=== PATIENT | female | born 1985 | race Caucasian/White ===

== ENCOUNTER → 2016-06-30 | Outpatient (CLI) | payer OTHER ==
[~2016-06-30] MED LIST: ACET50TAOT PO; IBUP800T23 PO; ISOVUE-370 76% 100ML VIAL (Q9967) As Ordered ONE; KEFL500C7 PO
--- NOTE | 2016-06-30 10:36 | REP ---
CT STUDY OF THE ABDOMEN PELVIS WITHOUT AND WITH IV CONTRAST: Without oral contrast. 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 Comparison CT study is from September 28, 2015 and December 04, 2012. The contrast enhanced study from September 28, 2015 showed foci of decreased cortical function or low density in the upper and mid pole position of the left kidney compatible with pyelonephritis versus cystic or neoplastic lesion. CT contrast dose: 100 mL of Isovue 370 is administered intravenously by auto injector. 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 The lung bases show patchy mosaic areas of slightly increased ground-glass opacity in the right lower lobe air. This is nonspecific and may reflect subsegmental atelectatic change or reactive airways disease. The liver and the spleen are normal in size and homogeneous in texture on pre and postcontrast images. No focal hepatic or splenic lesion is seen. The gallbladder is unremarkable. No pancreatic abnormality is seen. No adrenal lesion is observed on either side. The previously noted finding of multifocal decreased cortical enhancement in the left kidney is no longer apparent. No focal left or right renal abnormality is seen in the renal parenchyma. There is a tiny intrarenal calculus in each kidney. On the right, this is in the lower pole and measures 2 mm. On the left, there is a mid pole calculus also measuring 2 mm. No hydronephrosis is seen. No retroperitoneal mass or adenopathy is seen. Normal caliber aorta is noted. No vascular abnormality is seen. The IUD is seen in an anteverted normal appearing uterus. There is a 2.0 cm follicle cyst in the left ovary. No ovarian mass or significant lesion is seen. No abdominal wall defect is observed. No bony destructive lesion seen. IMPRESSION: 1. Intrarenal nephrolithiasis bilaterally. There is one 2 mm calculus in each kidney. 2. No evidence of renal mass or cyst on either side. No hydronephrosis. 3. No other significant abnormality. IUD in place in the uterus. Signed by Tao Miles MD 06/30/2016 10:41 A
== END ==
LOC: M RAD 09:01
PROVIDERS: ATTEND Internal Medicine Nephrology
DX: D41.02 Neoplasm of uncertain behavior of left kidney (principal); N20.0 Calculus of kidney; Z97.5 Presence of (intrauterine) contraceptive device

== ENCOUNTER → 2016-07-07 | Outpatient (REF) | payer OTHER ==
[~2016-07-07] MED LIST changes: -ISOVUE-370 76% 100ML VIAL (Q9967) As Ordered ONE
[2016-07-07 18:02] LABS: COMPLEMENT C3 96.2 MG/DL (90-180); COMPLEMENT C4 21.4 MG/DL (10-40)
== END ==
LOC: M LAB REF 17:05
PROVIDERS: ATTEND Internal Medicine Nephrology
DX: N39.0 Urinary tract infection, site not specified (principal); R31.9 Hematuria, unspecified

== ENCOUNTER → 2017-05-18 | Outpatient (CLI) | payer OTHER ==
[~2017-05-18] MED LIST changes: +IBUP1TAB7 PO; -IBUP800T23 PO; +KEFL500C17 PO; -KEFL500C7 PO
[2017-05-18 09:15] LABS: BASO % 0.4 % (0.0-1.0); EOS # 0.1 10^3/uL (0.0-0.50); EOS % 2.1 % (0.0-3.0); IMMATURE GRANULOCYTE % 0.1 % (0-0); LYMPH # 2.9 10^3/uL (1.5-4.5); LYMPH % 43.5 % (24.0-44.0); MEAN CORPUSCULAR HEMOGLOBIN 32.4 pg (27.0-33.0); MEAN CORPUSCULAR HGB CONC 35.1 g/dl (32.0-36.5); MEAN CORPUSCULAR VOLUME 92.4 fl (80.0-96.0); MONO # 0.5 10^3/uL (0.0-0.8); MONO % 7.1 % (0.0-5.0); NEUTROPHILS # 3.1 10^3/uL (1.8-7.7); NEUTROPHILS % 46.8 % (36.0-66.0); PLATELET COUNT, AUTOMATED 278 10^3/uL (150-450); RED CELL DISTRIBUTION WIDTH 12.3 % (11.5-14.5); WHITE BLOOD COUNT 6.7 10^3/uL (4.0-10.0)
[2017-05-18 10:13] LABS: PERCENT SATURATION 30.2 % (13.2-45.0)
[2017-05-18 11:52] LABS: FOLLICLE STIMULATING HORMONE 5.3 mIU/mL; LUTEINIZING HORMONE 9.5 mIU/mL
== END ==
LOC: M LAB 08:15
PROVIDERS: ATTEND Physician Assistant
DX: R53.81 Other malaise (principal)

== ENCOUNTER → 2019-07-13 | Outpatient (REF) | payer OTHER ==
[~2019-07-13] MED LIST changes: +ACET500T15 PO; -ACET50TAOT PO
[2019-07-13 11:30] LABS: INFLUENZA A AMPLIFICATION NEGATIVE (NEGATIVE); INFLUENZA B AMPLIFICATION NEGATIVE (NEGATIVE)
== END ==
LOC: M LAB REF 10:50
PROVIDERS: ATTEND Physician Assistant
DX: J11.1 Influenza due to unidentified influenza virus with other respiratory manifestations (principal)

== ENCOUNTER → 2022-04-20 | Outpatient (CLI) | payer OTHER | LOC: M WHC 10:51 | PROVIDERS: ATTEND Nurse Practitioner Family | DX: N63.21 Unspecified lump in the left breast, upper outer quadrant (principal) ==

== ENCOUNTER → 2022-09-22 | Outpatient (CLI) | payer OTHER ==
[~2022-09-22] MED LIST changes: +PROHANCE 279.3MG/ML 15ML VIAL As Ordered ONE
== END ==
LOC: M RAD 10:51
PROVIDERS: ATTEND Nurse Practitioner Women's Health
DX: N64.4 Mastodynia (principal); Z91.89 Other specified personal risk factors, not elsewhere classified; Z80.3 Family history of malignant neoplasm of breast; N63.20 Unspecified lump in the left breast, unspecified quadrant
CPT/HCPCS: 77049; A9576

== ENCOUNTER → 2022-09-23 | Outpatient (REF) | payer MEDICAID, OTHER ==
[~2022-09-23] MED LIST changes: -PROHANCE 279.3MG/ML 15ML VIAL As Ordered ONE
== END ==
LOC: M SFHCWAGY 08:22
PROVIDERS: ATTEND Nurse Practitioner Family
DX: Z12.4 Encounter for screening for malignant neoplasm of cervix (principal)

== ENCOUNTER → 2022-09-29 | Outpatient (CLI) | payer OTHER | LOC: M WHC 12:45 | PROVIDERS: ATTEND Nurse Practitioner Women's Health | DX: R92.8 Other abnormal and inconclusive findings on diagnostic imaging of breast (principal) ==

== ENCOUNTER → 2024-05-22 | Outpatient (CLI) | payer MEDICAID, SELFPAY | LOC: M WHC 08:36 | PROVIDERS: ATTEND Nurse Practitioner Family | DX: R92.8 Other abnormal and inconclusive findings on diagnostic imaging of breast (principal); N64.4 Mastodynia; N63.20 Unspecified lump in the left breast, unspecified quadrant; R92.323 Mammographic fibroglandular density, bilateral breasts | CPT/HCPCS: 76642; 77066; G0279 ==

== ENCOUNTER → 2024-06-21 | Outpatient (CLI) | payer OTHER ==
[2024-06-21 11:37] VITALS: TEMP 99.4
[2024-06-21 12:12] VITALS: BP 138/92; O2SAT 100
== END ==
LOC: M WHCPRO 10:29
PROVIDERS: ATTEND Nurse Practitioner Family
DX: N63.21 Unspecified lump in the left breast, upper outer quadrant (principal); C50.412 Malignant neoplasm of upper-outer quadrant of left female breast

== ENCOUNTER → 2024-07-03 | Outpatient (CLI) | payer OTHER ==
[~2024-07-03] MED LIST changes: +PROHANCE 279.3MG/ML 15ML VIAL As Ordered ONE; +PROHANCE 279.3MG/ML 5ML VIAL As Ordered ONE
== END ==
LOC: M RAD 16:42
PROVIDERS: ATTEND Nurse Practitioner Family
DX: D05.12 Intraductal carcinoma in situ of left breast (principal); R59.0 Localized enlarged lymph nodes
CPT/HCPCS: 77049; A9576

== ENCOUNTER → 2024-07-17 | Outpatient (CLI) | payer OTHER ==
[~2024-07-17] MED LIST changes: +ALLE60TA69 PO; +ISOVUE-370 76% 100ML VIAL ONE; -PROHANCE 279.3MG/ML 15ML VIAL As Ordered ONE; -PROHANCE 279.3MG/ML 5ML VIAL As Ordered ONE
== END ==
LOC: M PLAIMG 10:36
PROVIDERS: ATTEND Student in an Organized Health Care Education/Training Program
DX: C50.912 Malignant neoplasm of unspecified site of left female breast (principal); R93.2 Abnormal findings on diagnostic imaging of liver and biliary tract; N20.0 Calculus of kidney; E27.8 Other specified disorders of adrenal gland; R91.1 Solitary pulmonary nodule

== ENCOUNTER → 2024-07-20 | Outpatient (CLI) | payer OTHER ==
[~2024-07-20] MED LIST changes: +DEXA4TA PO; -ISOVUE-370 76% 100ML VIAL ONE
== END ==
LOC: M RAD 14:39
PROVIDERS: ATTEND Internal Medicine Medical Oncology
DX: C50.919 Malignant neoplasm of unspecified site of unspecified female breast (principal)

== ENCOUNTER → 2024-08-10 | Outpatient (CLI) | payer OTHER ==
[~2024-08-10] MED LIST changes: +LEVO1TAB39 PO; +NYST-38 PO; +ONDA-84 PO; +OXYC1TAB23 PO; +PROC10TA5 PO
== END ==
LOC: M RAD 10:00
PROVIDERS: ATTEND Internal Medicine
DX: C50.912 Malignant neoplasm of unspecified site of left female breast (principal); K86.9 Disease of pancreas, unspecified; K76.89 Other specified diseases of liver

== ENCOUNTER → 2024-08-27 | Outpatient (CLI) | payer OTHER | LOC: M PLARAD 09:11 | PROVIDERS: ATTEND Internal Medicine Medical Oncology | DX: C50.812 Malignant neoplasm of overlapping sites of left female breast (principal) | CPT/HCPCS: 78815; A9552 ==

== ENCOUNTER → 2024-09-28 | Outpatient (CLI) | payer OTHER ==
[~2024-09-28] MED LIST changes: +MAGICMW SSP
== END ==
LOC: M CARPUL 16:05
PROVIDERS: ATTEND Nurse Practitioner Women's Health
DX: C50.919 Malignant neoplasm of unspecified site of unspecified female breast (principal); Z79.69 Long term (current) use of other immunomodulators and immunosuppressants

== ENCOUNTER → 2024-12-14 | Outpatient (CLI) | payer OTHER ==
[~2024-12-14] MED LIST changes: +FLAR0.1S OP; +LOMO2.5T PO; +LOTE0.5O OP; +PERCOCET PO; +PREDOPD OP
== END ==
LOC: M CARPUL 10:01
PROVIDERS: ATTEND Internal Medicine Hematology & Oncology
DX: C50.919 Malignant neoplasm of unspecified site of unspecified female breast (principal); I34.0 Nonrheumatic mitral (valve) insufficiency; I36.1 Nonrheumatic tricuspid (valve) insufficiency

== ENCOUNTER → 2025-01-22 | Outpatient (CLI) | payer OTHER | LOC: M ONCR 14:42 | PROVIDERS: ATTEND General Practice | DX: C50.412 Malignant neoplasm of upper-outer quadrant of left female breast (principal); Z17.0 Estrogen receptor positive status [ER+]; Z17.21 Progesterone receptor positive status; Z17.31 Human epidermal growth factor receptor 2 positive status; Z98.890 Other specified postprocedural states; Z92.21 Personal history of antineoplastic chemotherapy; Z80.3 Family history of malignant neoplasm of breast; F17.210 Nicotine dependence, cigarettes, uncomplicated; Z88.1 Allergy status to other antibiotic agents; Z88.2 Allergy status to sulfonamides; Z79.899 Other long term (current) drug therapy ==

== ENCOUNTER → 2025-02-26 | Outpatient (RCR) | payer OTHER | LOC: M ONCR 02-04 10:52 | PROVIDERS: ATTEND General Practice | DX: Z51.0 Encounter for antineoplastic radiation therapy (principal); C50.412 Malignant neoplasm of upper-outer quadrant of left female breast ==

== ENCOUNTER 2025-03-15 15:02 | Outpatient (RCR) | payer OTHER | END 2025-03-29 | LOC: M ONCR 15:02 | PROVIDERS: ATTEND General Practice | DX: Z51.0 Encounter for antineoplastic radiation therapy (principal); C50.412 Malignant neoplasm of upper-outer quadrant of left female breast ==

== ENCOUNTER → 2025-03-18 | Outpatient (CLI) | payer OTHER | LOC: M CARPUL 15:28 | PROVIDERS: ATTEND Internal Medicine Medical Oncology | DX: C50.919 Malignant neoplasm of unspecified site of unspecified female breast (principal) ==